=== PATIENT | female | born 1970 | race Caucasian/White ===

== ENCOUNTER 2018-02-10 07:21 | Day surgery (SDC) | payer OTHER, SELFPAY ==
[2018-01-26 16:29] VITALS: BMI 36.0
[2018-02-10] VITALS (12 sets, daily range): BP systolic 102–165; BP diastolic 65–85; PULSE 47–80; RESP 13–18; TEMP 35.8–36.3; O2SAT 88–98; BMI 36.0
[2018-02-10] MEDS: SCOPOLAMINE 1 PATCH TOP (07:51)
--- NOTE | 2018-02-10 07:51 | PM.PREOP ---
Pre-operative Note Interval Note Pre-op Check: History & Physical Reviewed by Physician
[2018-02-10] MEDS: CELECOXIB 200 MG CAPSULE 400 MG PO (07:53)
[2018-02-10] MEDS: ONDANSETRON 4 MG/2 ML INJ IV (08:00)
--- NOTE | 2018-02-10 08:01 | PM.OP.1 ---
Operative Date/Time/Diagnoses - Date of procedure: 02/10/18 Time of procedure: 09:49 Pre-op diagnosis: Left shoulder bursitis Post-op diagnosis: same Procedure & Clinicians Procedure: Arthroscopic subacromial decompression left shoulder Same procedure as scheduled: Yes Indications: The patient presents today for arthroscopic subacromial decompression of the left shoulder. The nature of the procedure including the risks and benefits, alternatives, postoperative course and expected outcome were discussed and all questions answered. Consent was obtained. Operative site confirmed and marked. Surgeon: Saurabh Hickey Customer Development Representative: Aleah Blake Anesthesia Type: General, Peripheral nerve block and Local Operative Notes Findings: Moderate bursitis. Minimal anterior acromial spurring. No bursal articular sided rotator cuff tear. Biceps tendon and labrum intact and stable. No chondromalacia. The AC joint was not prominent into the joint. Successful subacromial decompression was performed as noted below. Closure Type: primary Specimen(s): none sent Estimated Blood Loss (mL): 5 Blood products transfused: none Procedure in detail: The patient was taken the operative suite and placed under general anesthesia with scalene nerve block and given prophylactic antibodies prior to surgery. The patient was then positioned in the modified beach chair position. The acromion and coracoid as well as the expected portal sites were all marked. The arm was then prepped and draped in usual sterile fashion. The joint was then filled with 20 mL of saline through the proposed posterior portal site. The posterior portal was then established and the scope placed bluntly into the glenohumeral joint. Placement was somewhat difficult given the size of the patient. The glenohumeral joint was then inspected (see findings above). The scope was then switched to the subacromial space. A standard bursectomy and anterior/lateral chondroplasty was performed with a shaver and bur. The patient had minimal anterior acromial spur so fairly modest acromioplasty was performed. The coracoacromial ligament was just recessed. The subacromial space was well decompressed. The arthroscopy was then completed and the shoulder drained. The portal sites were closed with interrupted 3-0 nylon suture. Subacromial space was filled with 20 mL of 0.5% ropivacaine and 4 of morphine. Sterile gauze dressings were then applied. The shoulder was placed into a sling. The patient tolerated the procedure well and was returned recovery room in good condition. Complications: none Condition: stable Disposition: same day surgery Plan for aftercare: Standard postoperative protocol. Sling for comfort. May progress activity as tolerated. Clinic follow-up in 2 weeks.
[2018-02-10] MEDS: LACTATED RINGERS 1,000 ML 42 ML IV (08:03)
[2018-02-10] MEDS: MIDAZOLAM 2 MG/2 ML VIAL IV (08:04)
--- NOTE | 2018-02-10 08:08 | SUR.OPER ---
Beach chair with Bridger/Tanisha shoulder positioner. Lower body on padded OR bed. Head in foam padded head cradle, secured with straps. Non-operative arm secured <90 degrees abduction. Pillow under knees. Safety belt at thigh. Cloth tape over blanket over lower legs.
--- NOTE | 2018-02-10 08:23 | SUR.PREOP ---
Block start time []0812 . Monitoring initiated and maintained throughout procedure. Oxygen and medications given per anesthesiologist instructions. Patient remained stable throughout procedure, no adverse reactions noted. Block end time [0818].
[2018-02-10] MEDS: CEFAZOLIN 2 GM/100 ML FROZ.PIGGY IV (08:28)
[2018-02-10] MEDS: CEFAZOLIN 1 GM VIAL IV (08:39)
[2018-02-10] MEDS: BUPIVACAINE 0.5% W/ EPI (PF) 30 ML VIAL INJ (09:26)
[2018-02-10] MEDS: SODIUM CHLORIDE IRRIG SOLUTION 3,000 ML, EPINEPHrine 1 MG IRR (09:28)
--- NOTE | 2018-02-10 10:03 | PM.DS.1 ---
History of Present Illness Chief complaint: [id number] Discharge Providers Discharge provider: Saurabh Hickey MD Exam Vital Signs (past 8 hours): - 02/10/18 07:41 Temperature 97.0 F L Pulse Rate 80 Respiratory Rate 16 Blood Pressure 165/85 H Pulse Oximetry 98 Oxygen Delivery Method Room Air Discharge Plan Discharge Med Rec/Prescriptions Prescriptions: No Action ibuprofen [Advil] 200 mg Tablet 100 - 200 mg PO TID PRN (Reason: Pain) RF: 0 Discharge Data Attending Provider: Saurabh Hickey
[2018-02-10] MEDS: fentaNYL 100 MCG/2 ML INJ 50 MCG IV ×2 (10:16→10:21)
[2018-02-10] MEDS: OXYCODONE IR 5 MG TABLET PO ×2 (10:30→11:00)
--- NOTE | 2018-02-10 10:43 | SUR.PHASEI ---
1040: Unable to document on airway and respirations. Pt breathing independently, remains on 4 L NC with adequate sats. Will wean down as able and transport to Phase II / OPD.
[2018-02-10] MEDS: ACETAMINOPHEN 325 MG TABLET PO (10:57)
== END 2018-02-10 11:40 | disposition home or self-care (01) ==
PROVIDERS: Visit Provider Orthopaedic Surgery
PROC: (CPT 29805; principal; 2018-02-10 07:45)
DX: M75.52 Bursitis of left shoulder (principal); E66.01 Morbid (severe) obesity due to excess calories; G89.18 Other acute postprocedural pain
CPT/HCPCS: 29822; 64415; 64450; J0171; J0690; J1100; J2250; J2405; J2704; J3010